=== PATIENT | female | born 1945 | race Caucasian/White ===

== ENCOUNTER 2023-04-09 11:05 | Inpatient (IN) | payer MEDICARE, OTHER ==
--- NOTE | 2023-04-09 12:17 | ED ---
General Adult HPI - General Chief complaint: Neuro Symptoms/Deficit Stated complaint: swelling in the face/Recheck Time Seen by Provider: 04/09/23 11:32 Source: patient Mode of arrival: ambulatory Limitations: altered mental status - History of Present Illness Initial comments: Dictation was produced using [employer] dictation software. please excuse any grammatical, word or spelling errors. Chief Complaint: 77-year-old female presents to the emergency family with altered mental status History of Present Illness: 77-year-old female. History of present illness obtained from brother at the bedside and EMS. Patient is a resident at [facility] she was found to be altered and had a bout of diarrhea. According to brother who is not the most familiar with patient states that she was last at baseline a year ago. General facial droop and watery eyes. The ROS documented in this emergency department record has been reviewed and confirmed by me. Those systems with pertinent positive or negative responses have been documented in the HPI. All other systems are other negative and/or noncontributory. - Related Data Allergies Allergy/AdvReac Type Severity Reaction Status Date / Time clindamycin Allergy Unknown Verified 04/09/23 11:30 fluticasone Allergy Unknown Verified 04/09/23 11:30 [From Advair Diskus] pregabalin [From Lyrica] Allergy Unknown Verified 04/09/23 11:30 salmeterol Allergy Unknown Verified 04/09/23 11:30 [From Advair Diskus] Review of Systems ROS Statement: Those systems with pertinent positive or pertinent negative responses have been documented in the HPI. ROS Other: All systems not noted in ROS Statement are negative. Past Medical History Past Medical History: Hypertension Additional Past Medical History / Comment(s): Myasthenia gravis, myasthenia,alzheimer's, dementia History of Any Multi-Drug Resistant Organisms: None Reported Past Surgical History: Orthopedic Surgery Past Psychological History: Depression Smoking Status: Never smoker Past Alcohol Use History: None Reported Past Drug Use History: None Reported General Exam - General Exam Comments Initial Comments: PHYSICAL EXAM: General Impression: Alert and oriented x1/4, not in acute distress HEENT: Normocephalic atraumatic, extra-ocular movements intact, pupils equal and reactive to light bilaterally, mucous membranes moist. Cardiovascular: Heart regular rate and rhythm Chest: Able to complete full sentences, no retractions, no tachypnea Abdomen: abdomen soft, non-tender, non-distended, no organomegaly Musculoskeletal: Pulses present and equal in all extremities, no peripheral tarun ma Motor: no focal deficits noted Neurological: CN II-XII grossly intact, no focal motor or sensory deficits noted Skin: Intact with no visualized rashes Psych: Normal affect and mood Limitations: altered mental status Course Vital Signs 04/09/23 11:23 Temperature 98.2 F Pulse Rate 77 Respiratory 20 Rate Blood Pressure 128/62 O2 Sat by Pulse 96 Oximetry Medical Decision Making - Medical Decision Making Was pt. sent in by a medical professional or institution (, PA, HOSE TURNER, urgent care, hospital, or longterm...) When possible be specific @ -No Did you speak to anyone other than the patient for history (EMS, parent, family, police, friend...)? What history was obtained from this source @ -Some history obtained from brother who is the power of attorney at law states that patient has been having chronic insidious mental debility that's been worsening Did you review nursing and triage notes (agree or disagree)? Why? @ -I reviewed and agree with nursing and triage notes Were old charts reviewed (outside hosp., previous admission, EMS record, old EKG, old radiological studies, urgent care reports/EKG's, longterm records)? Report findings @ -No old charts were reviewed Differential Diagnosis (chest pain, altered mental status, abdominal pain women, abdominal pain men, vaginal bleeding, musculoskeletal, weakness, fever, dyspnea, syncope, headache, dizziness, GI bleed, back pain, seizure, CVA, palpatations, mental health)? @ -Differential Altered Mental Status: Hypoglycemia, DKA, hypercapnia, ETOH, overdose, CO poisoning, trauma, myxedema coma, HTN encephalopathy, infection, encephalitis, psychosis, intercranial hemorrhage, hepatic encephalopathy, meningitis, CVA, this is not meant to be an all-inclusive list EKG interpreted by me (3pts min.). @ -My EKG interpretation: Ventricular rate 62, sinus rhythm,. 129, QRS 108, QTC 422. No [place] prolongation, no QTC prolongation, no ST or T-wave changes noted. Overall, this EKG is unremarkable X-rays interpreted by me (1pt min.). @ -None done CT interpreted by me (1pt min.). @ -CT Scan of the brain is unremarkable for acute processes. U/S interpreted by me (1pt. min.). @ -None done What testing was considered but not performed or refused? (CT, X-rays, U/S, labs)? Why? @ -None What meds were considered but not given or refused? Why? @ -None Did you discuss the management of the patient with other professionals (professionals i.e. , PA, HOSE TURNER, lab, RT, psych nurse, social service assistant, infantry unit leader, teacher, foreign service officer, continuous pillowcase cutter)? Give summary @ -Labs imaging and clinical presentation discussed with Dr. [facility] for admission Was smoking cessation discussed for >3mins.? @ -No Was critical care preformed (if so, how long)? @ -No Were there social determinants of health that impacted care today? How? (Ho melessness, low income, unemployed, alcoholism, drug addiction, transportation, low edu. Level, literacy, decrease access to med. care, halfway, rehab)? @ -Dementia and agreeable disability Was there de-escalation of care discussed even if they declined (Discuss DNR or withdrawal of care, Hospice)? DNR status @ -No What co-morbidities impacted this encounter? (DM, HTN, Smoking, COPD, CAD, Cancer, CVA, ARF, Chemo, Hep., AIDS, mental health diagnosis, sleep apnea, morbid obesity)? @ -None Was patient admitted / discharged? Hospital course, mention meds given and route, prescriptions, significant lab abnormalities, going to OR and other pertinent info. @ -77-year-old female presents to the emergency department for worsening mentation. Brother reports that patient's mentation has been slowly declining over the last several months. She lives at [facility] and their memory care unit. He reports that patient is beyond her capabilities of care. Patient will likely require escalation of long-term care. Labs and imaging unremarkable for acute processes. Patient will be admitted with consultation to continuous pillowcase cutter. Undiagnosed new problem with uncertain prognosis? @ -No Drug Therapy requiring intensive monitoring for toxicity (Heparin, Nitro, Insulin, Cardizem)? @ -No Were any procedures done? @ -No Diagnosis/symptom? Acute, or Chronic, or Acute on Chronic? Uncomplicated (without systemic symptoms) or Complicated (systemic symptoms)? @ -. Gravely disabled Side effects of treatment? @ -No Exacerbation, Progression, or Severe Exacerbation? @ -No Poses a threat to life or bodily function? How? (Chest pain, [place], [place], pneumonia, PE, COPD, DKA, ARF, appy, cholecystitis, CVA, Diverticulitis, Homicidal, Suicidal, threat to staff... and all critical care pts) @ -yes - Lab Data Result diagrams: 04/09/23 11:49 04/09/23 11:49 Lab Results 04/09/23 04/09/23 04/09/23 Range/Units 11:49 11:49 11:49 WBC 10.7 H (3.8-10.6) k/uL RBC 4.14 (3.80-5.40) m/uL Hgb 13.6 (11.4-16.0) gm/dL Hct 41.3 (34.0-46.0) % MCV 99.7 (80.0-100.0) fL MCH 32.9 (25.0-35.0) pg MCHC 33.0 (31.0-37.0) g/dL RDW 13.4 (11.5-15.5) % Plt Count 171 (150-450) k/uL MPV 7.0 Neutrophils % 89 % Lymphocytes % 5 % Monocytes % 4 % Eosinophils % 1 % Basophils % 0 % Neutrophils # 9.5 H (1.3-7.7) k/uL Lymphocytes # 0.6 L (1.0-4.8) k/uL Monocytes # 0.4 (0-1.0) k/uL Eosinophils # 0.1 (0-0.7) k/uL Basophils # 0.0 (0-0.2) k/uL PT 10.1 (9.0-12.0) sec INR 0.9 (<1.2) APTT 21.1 L (22.0-30.0) sec Sodium 137 (137-145) mmol/L Potassium 3.9 (3.5-5.1) mmol/L Chloride 105 (98-107) mmol/L Carbon Dioxide 25 (22-30) mmol/L Anion Gap 7 mmol/L BUN 19 H (7-17) mg/dL Creatinine 0.96 (0.52-1.04) mg/dL Est GFR (CKD-EPI)AfAm 67 (>60 ml/min/1.73 sqM) Est GFR (CKD-EPI)NonAf 58 (>60 ml/min/1.73 sqM) Glucose 93 (74-99) mg/dL Calcium 8.7 (8.4-10.2) mg/dL Magnesium 2.1 (1.6-2.3) mg/dL Troponin I (0.000-0.034) ng/mL Urine Color Urine Appearance (Clear) Urine pH (5.0-8.0) Ur Specific [place] (1.001-1.035) Urine Protein (Negative) Urine Glucose (UA) (Negative) Urine Ketones (Negative) Urine Blood (Negative) Urine Nitrite (Negative) Urine Bilirubin (Negative) Urine Urobilinogen (<2.0) mg/dL Ur Leukocyte Esterase (Negative) Urine RBC (0-5) /hpf Urine WBC (0-5) /hpf Urine Mucus (None) /hpf 04/09/23 04/09/23 Range/Units 11:49 12:30 WBC (3.8-10.6) k/uL RBC (3.80-5.40) m/uL Hgb (11.4-16.0) gm/dL Hct (34.0-46.0) % MCV (80.0-100.0) fL MCH (25.0-35.0) pg MCHC (31.0-37.0) g/dL RDW (11.5-15.5) % Plt Count (150-450) k/uL MPV Neutrophils % % Lymphocytes % % Monocytes % % Eosinophils % % Basophils % % Neutrophils # (1.3-7.7) k/uL Lymphocytes # (1.0-4.8) k/uL Monocytes # (0-1.0) k/uL Eosinophils # (0-0.7) k/uL Basophils # (0-0.2) k/uL PT (9.0-12.0) sec INR (<1.2) APTT (22.0-30.0) sec Sodium (137-145) mmol/L Potassium (3.5-5.1) mmol/L Chloride (98-107) mmol/L Carbon Dioxide (22-30) mmol/L Anion Gap mmol/L BUN (7-17) mg/dL Creatinine (0.52-1.04) mg/dL Est GFR (CKD-EPI)AfAm (>60 ml/min/1.73 sqM) Est GFR (CKD-EPI)NonAf (>60 ml/min/1.73 sqM) Glucose (74-99) mg/dL Calcium (8.4-10.2) mg/dL Magnesium (1.6-2.3) mg/dL Troponin I <0.012 (0.000-0.034) ng/mL Urine Color Yellow Urine Appearance Clear (Clear) Urine pH 5.5 (5.0-8.0) Ur Specific [place] 1.023 (1.001-1.035) Urine Protein Trace H (Negative) Urine Glucose (UA) Negative (Negative) Urine Ketones Negative (Negative) Urine Blood Trace H (Negative) Urine Nitrite Negative (Negative) Urine Bilirubin Negative (Negative) Urine Urobilinogen <2.0 (<2.0) mg/dL Ur Leukocyte Esterase Negative (Negative) Urine RBC 6 H (0-5) /hpf Urine WBC 3 (0-5) /hpf Urine Mucus Occasional H (None) /hpf Disposition Clinical Impression: Gravely disabled Disposition: ADMITTED IP TO THIS [facility] Condition: Fair Referrals: None,Stated [REFERRING] - 1-2 days Decision Time: 13:45
--- NOTE | 2023-04-09 12:30 | CT ---
EXAMINATION TYPE: CT brain wo con DATE OF EXAM: 04/09/2023 HISTORY: AMS, facial swelling CT DLP: 1125.6 mGycm. Automated Exposure Control for Dose Reduction was Utilized. TECHNIQUE: CT scan of the head is performed without contrast. COMPARISON: None. FINDINGS: There is no acute intracranial hemorrhage or midline shift identified. There is mild to m oderate diffuse ventricular and sulcal prominence consistent with splinter to a prominent slightly ou t of proportion to degree of sulcal effacement. There is mild low-attenuation in the periventricular white matter. The globes are intact and the visualized sinuses are clear. IMPRESSION: No acute intracranial hemorrhage or midline shift. There is mild to moderate diffuse ce rebral atrophy and mild chronic small vessel ischemic change noted. An underlying mild normal pressu re hydrocephalus is not excluded. Correlation with old outside CT or MRI be beneficial.
[2023-04-09 12:38] LABS: Basophils % (A) 0 %; Eosinophils # (A) 0.1 k/uL (0-0.7); Eosinophils % (A) 1 %; HCT 41.3 % (34.0-46.0); HGB 13.6 gm/dL (11.4-16.0); Lymphocytes # (A) 0.6 k/uL (1.0-4.8); Lymphocytes % (A) 5 %; MCH 32.9 pg (25.0-35.0); MCV 99.7 fL (80.0-100.0); Monocytes # (A) 0.4 k/uL (0-1.0); Monocytes % (A) 4 %; Neutrophils # (A) 9.5 k/uL (1.3-7.7); Neutrophils % (A) 89 %; Platelet Count 171 k/uL (150-450); RBC 4.14 m/uL (3.80-5.40); RDW 13.4 % (11.5-15.5); WBC 10.7 k/uL (3.8-10.6)
[2023-04-09 12:47] LABS: Appearance,Urine Clear (Clear); Bilirubin,Urine Negative (Negative); Blood,Urine Trace (Negative); Color,Urine Yellow; Glucose,Urine (UA) Negative (Negative); Ketones,Urine Negative (Negative); Leukocyte Esterase,Urine Negative (Negative); Mucus,Urine Occasional /hpf; Nitrite,Urine Negative (Negative); PH, Urine 5.5 (5.0-8.0); Protein,Urine Trace (Negative); RBC,Urine 6 /hpf (0-5); Specific Gravity,Urine 1.023 (1.001-1.035); Urobilinogen,Urine <2.0 mg/dL (<2.0); WBC,Urine 3 /hpf (0-5)
[2023-04-09 12:54] LABS: Calcium 8.7 mg/dL (8.4-10.2); INR 0.9 (<1.2); Magnesium 2.1 mg/dL (1.6-2.3); Potassium 3.9 mmol/L (3.5-5.1); Prothrombin Time 10.1 sec (9.0-12.0)
[2023-04-09 13:27] LABS: Partial Thromboplastin Time 21.1 sec (22.0-30.0)
[2023-04-09] MEDS ORDERED: NALOXONE 0.4 MG/ML 1 ML VIAL IV PRN (14:01)
[2023-04-09] MEDS ORDERED: ACETAMINOPHEN TAB 325 MG TAB PO PRN (16:47)
--- NOTE | 2023-04-09 16:53 | P.HPIM ---
History of Present Illness H&P Date: 04/09/23 Patient is a 77-year-old female with PMH of advanced Alzheimer's dementia, myasthenia gravis, hypertension, dyslipidemia presents the ED from [facility] dementia unit for worsening altered mentation. Her brother has secondary POA is at bedside and providing majority of the history. Her brother visits the patient 2-3 times a week. He is noted progressive deterioration in her mentation over the past month. He reports bladder and bowel incontinence. Today, she had 2 episodes of loose stool. She was subsequently sent to the ED for further evaluation. Patient herself currently has no complaints. In the ED, her vital signs are stable. CBC showed leukocytosis of 10.7. Coagulation panel showed APTT 21.1. BMP showed BUN of 19. UA was negative for LE or nitrite. EKG showed sinus rhythm with no ST or T-wave changes. Brain CT showed mild to moderate diffuse cerebral atrophy, mild NPH not excluded. Patient is admitted for further management and evaluation. Pertinent positives and negatives as discussed in HPI, a complete review of systems was performed and all other systems are negative. General: non toxic, no distress, appears at stated age Derm: warm, dry Head: atraumatic, normocephalic, symmetric Eyes: EOMI, no lid lag, anicteric sclera Mouth: no lip lesion, mucus membranes moist Cardiovascular: S1S2 reg, no murmur Lungs: CTA bilateral, no rhonchi, no rales , no accessory muscle use Abdominal: soft, nontender to palpation, no guarding, no appreciable organomegaly Ext: no gross muscle atrophy, no edema, no contractures Neuro: no focal neuro deficits Psych: Alert and oriented x 1, appropriate affect Acute metabolic encephalopathy likely related to advanced Alzheimer's dementia Bladder and bowel incontinence likely sequelae of advanced Alzheimer's dementia Leukocytosis Elevated BUN Chronic conditions: Myasthenia gravis, hypertension, dyslipidemia Based on my assessment of this patient, this patient meets a moderate complexity level of care. Patient has a history of advanced Alzheimer's dementia with severe exacerbation or progression of disease which poses a threat to life or bodily function. Brother has concerns of bladder and bowel incontinence. B12, Folate and TSH will be ordered. Patient will be placed on fall precautions. PT OT and ST will be co nsulted. Restart Aricept 10 mg PO QD. Avoid sedative medications. Frequent redirection. FULL CODE. Her son is the decision maker and primary POA. Lovenox SQ for DVT prophylaxis. I have reviewed the results of the following tests: CBC showed leukocytosis of 10.7. Coagulation panel showed APTT 21.1. BMP showed BUN of 19. UA was negative for LE or nitrite. Brain CT showed mild to moderate diffuse cerebral atrophy, mild NPH not excluded. I have ordered the following tests: B12, Folate, TSH. I have independently interpreted the following test below: EKG showed sinus rhythm with no ST or T-wave changes. Past Medical History Past Medical History: Hypertension Additional Past Medical History / Comment(s): Myasthenia gravis, my asthenia,alzheimer's, dementia History of Any Multi-Drug Resistant Organisms: None Reported Past Surgical History: Orthopedic Surgery Past Psychological History: Depression Smoking Status: Never smoker Past Alcohol Use History: None Reported Past Drug Use History: None Reported Medications and Allergies Allergies Allergy/AdvReac Type Severity Reaction Status Date / Time clindamycin Allergy Unknown Verified 04/09/23 11:30 fluticasone Allergy Unknown Verified 04/09/23 11:30 [From Advair Diskus] pregabalin [From Lyrica] Allergy Unknown Verified 04/09/23 11:30 salmeterol Allergy Unknown Verified 04/09/23 11:30 [From Advair Diskus] Physical Exam Vitals: Vital Signs Temp Pulse Pulse Resp BP BP Pulse Ox 04/09/23 16:00 98.5 F 57 L 18 125/76 95 04/09/23 14:13 99.5 F 81 18 154/71 98 04/09/23 11:23 98.2 F 77 20 128/62 96 Intake and Output 04/09/23 04/09/23 04/09/23 06:59 14:59 22:59 Other: Weight 58.967 kg Results CBC & Chem 7: 04/09/23 11:49 04/09/23 11:49 Labs: Abnormal Lab Results - Last 24 Hours (Table) 04/09/23 04/09/23 04/09/23 Range/Units 11:49 11:49 11:49 WBC 10.7 H (3.8-10.6) k/uL Neutrophils # 9.5 H (1.3-7.7) k/uL Lymphocytes # 0.6 L (1.0-4.8) k/uL APTT 21.1 L (22.0-30.0) sec BUN 19 H (7-17) mg/dL Urine Protein (Negative) Urine Blood (Negative) Urine RBC (0-5) /hpf Urine Mucus (None) /hpf 04/09/23 Range/Units 12:30 WBC (3.8-10.6) k/uL Neutrophils # (1.3-7.7) k/uL Lymphocytes # (1.0-4.8) k/uL APTT (22.0-30.0) sec BUN (7-17) mg/dL Urine Protein Trace H (Negative) Urine Blood Trace H (Negative) Urine RBC 6 H (0-5) /hpf Urine Mucus Occasional H (None) /hpf Thrombosis Risk Factor Assmnt - Choose All That Apply Any of the Below Risk Factors Present?: Yes Other Risk Factors: Yes Each Risk Factor Represents 3 Points: Age 75 years or older Thrombosis Risk Factor Assessment Total Risk Factor Score: 3 Thrombosis Risk Factor Assessment Level: Moderate Risk
[2023-04-09] MEDS: ATORVASTATIN 20 MG TAB PO SCH (21:48)
[2023-04-09] MEDS: DONEPEZIL 10 MG TAB PO SCH (21:48)
[2023-04-09] MEDS: MONTELUKAST 10 MG TAB PO SCH (21:48)
[2023-04-09] MEDS: cycloSPORINE 0.05% OPHTH 0.4 ML DROPERETTE BOTH EYES SCH (22:45)
[2023-04-09] MEDS: SODIUM CHLORIDE 0.9% 1,000 ML IV SCH (22:46)
[2023-04-10] MEDS: METOPROLOL SUCCINATE (ER) 50 MG TAB.ER.24H PO SCH (04:50)
[2023-04-10] MEDS: ENOXAPARIN 40 MG/0.4 ML SYRINGE SQ SCH (09:08)
[2023-04-10] MEDS: LORATADINE 10 MG TAB PO SCH (09:09)
[2023-04-10] MEDS: ASPIRIN 81 MG PO SCH (09:09)
[2023-04-10] MEDS: ARIPiprazole 2 MG TAB PO SCH (09:09)
[2023-04-10] MEDS: predniSONE 20 MG TAB PO SCH (09:10)
[2023-04-10] MEDS: cycloSPORINE 0.05% OPHTH 0.4 ML DROPERETTE BOTH EYES SCH ×2 (09:10→21:56)
--- NOTE | 2023-04-10 15:51 | P.PN ---
Subjective Progress Note Date: 04/10/23 (delayed charting seen at 1145) Patient is a 77-year-old female with advanced Alzheimer's dementia, myasthenia gravis, hypertension, dyslipidemia presents to the ED from [facility] for worsening altered mentation. In the ED the patient underwent an extensive evaluation, her vital signs were within normal limits. Laboratory analysis was remarkable for leukocytosis of 10.7 and BUN of 19. Brain CT showed mild to moderate diffuse cerebral atrophy, mild NPH not excluded. Patient was admitted for further management and evaluation. Patient seen and examined at bedside. She is pleasantly confused.She denies any chest pain, SOB, nuasea. Per nursing no acute concerns. Vital signs reviewed General: nontoxic, no distress, appears at stated age Cardiovascular: S1S2 reg, no murmur, positive posterior tibial pulse bilateral, Lungs: CTA bilateral, no rhonchi, no rales , no accessory muscle use Abdominal: soft, nontender to palpation, no guarding, no appreciable organomegaly Ext: no gross muscle atrophy, no edema, no contractures Neuro: CN II-XI grossly intact, no focal neuro deficits Psych: Alert, oriented to self , appropriate affect Assessment: Acue delerium on advanced dementia Dehydration Leukocytosis Chronic conditions: Myasthenia gravis, hypertension, dyslipidemia Imaging: No new Data Review: TMax in 24 hours 99.5 B12 290, folate 16.1, TSH 1.55 Plan: -PT/OT evaluation -Continue monitor for signs of diarrhea -Repeat CBC and basic metabolic profile in a.m. for dehydration and to ensure improvement in white blood cell count -It appears from prior notes that patient is unable to return to [facility] as she is needing more care than they are able to give DVT prophylaxis: Lovenox Discussed with: Nursing Anticipated discharge date and place: Pending clinical course This dictation was prepared using [employer] voice recognition software. Though every attempt is made to correct errors during during dictation some may still exist. Objective - Vital Signs Vital signs: Vital Signs Temp 98.3 F 04/10/23 07:46 Pulse 53 L 04/10/23 07:46 Resp 17 04/10/23 07:46 BP 133/72 04/10/23 07:46 Pulse Ox 96 04/10/23 07:46 FiO2 Intake & Output 04/09/23 04/10/23 04/10/23 18:59 06:59 18:59 Intake Total 250 Balance 250 Weight 58.967 kg Intake: Oral 250 Other: Voiding Method Diaper Incontinent # Voids 2 1 # Bowel Movements 1 - Labs CBC & Chem 7: 04/09/23 11:49 04/09/23 11:49
[2023-04-10] MEDS: MONTELUKAST 10 MG TAB PO SCH (21:56)
[2023-04-10] MEDS: ATORVASTATIN 20 MG TAB PO SCH (21:56)
[2023-04-10] MEDS: DONEPEZIL 10 MG TAB PO SCH (21:56)
[2023-04-10] MEDS: SODIUM CHLORIDE 0.9% 1,000 ML IV SCH (21:57)
[2023-04-11] MEDS: METOPROLOL SUCCINATE (ER) 50 MG TAB.ER.24H PO SCH (07:56)
[2023-04-11] MEDS: LORATADINE 10 MG TAB PO SCH (07:56)
[2023-04-11] MEDS: ASPIRIN 81 MG PO SCH (07:56)
[2023-04-11] MEDS: ENOXAPARIN 40 MG/0.4 ML SYRINGE SQ SCH (07:57)
[2023-04-11] MEDS: predniSONE 20 MG TAB PO SCH (07:57)
[2023-04-11] MEDS: ARIPiprazole 2 MG TAB PO SCH (07:57)
[2023-04-11] MEDS: cycloSPORINE 0.05% OPHTH 0.4 ML DROPERETTE BOTH EYES SCH ×2 (07:57→21:33)
[2023-04-11 09:28] LABS: HCT 47.7 % (34.0-46.0); HGB 15.3 gm/dL (11.4-16.0); MCHC 32.1 g/dL (31.0-37.0); MCV 102.8 fL (80.0-100.0); Macrocytosis Slight; Platelet Count 186 k/uL (150-450); RBC 4.63 m/uL (3.80-5.40); RDW 13.1 % (11.5-15.5)
[2023-04-11 09:45] LABS: African American GFR (CKD) 77 (>60 ml/min/1.73 sqM); Anion Gap 12 mmol/L; Blood Urea Nitrogen 17 mg/dL (7-17); Calcium 9.3 mg/dL (8.4-10.2); Carbon Dioxide 20 mmol/L (22-30); Chloride 106 mmol/L (98-107); Glucose 145 mg/dL (74-99); Non-African American GFR(CKD) 67 (>60 ml/min/1.73 sqM); Potassium 3.7 mmol/L (3.5-5.1); Sodium 138 mmol/L (137-145)
--- NOTE | 2023-04-11 12:06 | XR ---
EXAMINATION TYPE: XR chest 1V portable DATE OF EXAM: 04/11/2023 CLINICAL HISTORY: Leukocytosis. TECHNIQUE: Single AP portable upright view of the chest is obtained. COMPARISON: None. FINDINGS: There is no suspicious focal airspace opacity, pleural effusion, or pneumothorax seen bila terally. Cardiac silhouette size is upper limits of normal. Degenerative change left glenohumeral levon nt is seen. IMPRESSION: No acute pulmonary infiltrate.
[2023-04-11] MEDS: SODIUM CHLORIDE 0.9% 1,000 ML IV SCH (15:33)
--- NOTE | 2023-04-11 15:55 | P.PN ---
Subjective Progress Note Date: 04/11/23 (Delayed charting seen at approximately 1120) Patient is a 77-year-old female with advanced Alzheimer's dementia, myasthenia gravis, hypertension, dyslipidemia presents to the ED from [facility] dementia unit for worsening altered mentation. In the ED the patient underwent an extensive evaluation, her vital signs were within normal limits. Laboratory analysis was remarkable for leukocytosis of 10.7 and BUN of 19. Brain CT showed mild to moderate diffuse cerebral atrophy, mild NPH not excluded. Patient was admitted for further management and evaluation. Patient seen and examined at bedside. She is alert to self only. She denies any complaints. Per nursing no acute events overnight. No diarrhea noted. Son presented to the room later in the afternoon. He is concerned that [facility] is no longer able to care for her. We discussed that she is elevated white blood cell count or urinalysis and chest x-ray are negative. We discussed that we'll have to figure out an appropriate discharge plan for her and he has anxiously waiting to talk to cyanide case hardener tomorrow and states he likely will be pursuing [facility] placement on discharge. We did discuss that the CT of the head was consistent with dementia but did not show any prior stroke and worsening of likely secondary to progression of dementia. Vital signs reviewed General: nontoxic, no distress, appears at stated age Cardiovascular: S1S2 reg, no murmur, positive posterior tibial pulse bilateral, Lungs: CTA bilateral, no rhonchi, no rales , no accessory muscle use Abdominal: soft, nontender to palpation, no guarding, no appreciable organomegaly Ext: no gross muscle atrophy, no edema, no contractures Neuro: CN II-XI grossly intact, no focal neuro deficits Psych: Alert, oriented to self , appropriate affect Assessment: Acute delirium on advanced dementia Dehydration, resolved Leukocytosis, increasing Chronic conditions: Myasthenia gravis, hypertension, dyslipidemia Imaging: No new Data Review: Vitals reviewed in T-max last 24 hours is 99.2. I have reviewed and remarkable for white blood cell count 13 (up from 10.7, carbon dioxide 20, glucose 145 Plan: -Elevated white blood cell count was noted and chest x-ray was ordered and reviewed by myself which shows no acute process. Will repeat CBC in AM -PT/OT evaluation -It appears from prior notes that patient is unable to return to [facility] as she is needing more care than they are able to give DVT prophylaxis: Lovenox Discussed with: Nursing Anticipated discharge date and place: Pending clinical course This dictation was prepared using [employer] voice recognition software. Though every attempt is made to correct errors during during dictation some may still exist. Objective - Vital Signs Vital signs: Vital Signs Temp 99.2 F 04/11/23 14:00 Pulse 90 04/11/23 14:00 Resp 16 04/11/23 14:00 BP 109/72 04/11/23 14:00 Pulse Ox 94 L 04/11/23 14:00 FiO2 Intake & Output 04/10/23 04/11/23 04/11/23 18:59 06:59 18:59 Intake Total 240 120 Balance 240 120 Intake: Oral 240 120 Other: Voiding Method Diaper Toilet Toilet Incontinent Diaper Diaper Incontinent Incontinent # Voids 2 - Labs CBC & Chem 7: 04/11/23 08:48 04/11/23 08:48 Labs: Abnormal Lab Results - Last 24 Hours (Table) 04/11/23 04/11/23 Range/Units 08:48 08:48 WBC 13.0 H (3.8-10.6) k/uL Hct 47.7 H (34.0-46.0) % MCV 102.8 H (80.0-100.0) fL Carbon Dioxide 20 L (22-30) mmol/L Glucose 145 H (74-99) mg/dL
[2023-04-11] MEDS: ATORVASTATIN 20 MG TAB PO SCH (21:02)
[2023-04-11] MEDS: MONTELUKAST 10 MG TAB PO SCH (21:02)
[2023-04-11] MEDS: DONEPEZIL 10 MG TAB PO SCH (21:02)
[2023-04-12] MEDS: ASPIRIN 81 MG PO SCH (07:50)
[2023-04-12] MEDS: predniSONE 20 MG TAB PO SCH (07:50)
[2023-04-12] MEDS: LORATADINE 10 MG TAB PO SCH (07:50)
[2023-04-12] MEDS: METOPROLOL SUCCINATE (ER) 50 MG TAB.ER.24H PO SCH (07:50)
[2023-04-12] MEDS: ARIPiprazole 2 MG TAB PO SCH (07:52)
[2023-04-12] MEDS: cycloSPORINE 0.05% OPHTH 0.4 ML DROPERETTE BOTH EYES SCH ×2 (07:53→22:34)
[2023-04-12] MEDS: ENOXAPARIN 40 MG/0.4 ML SYRINGE SQ SCH (07:53)
[2023-04-12 08:25] LABS: HCT 44.1 % (34.0-46.0); HGB 14.5 gm/dL (11.4-16.0); MCH 33.4 pg (25.0-35.0); MCHC 32.7 g/dL (31.0-37.0); Macrocytosis Slight; Mean Platelet Volume 7.1; Platelet Count 186 k/uL (150-450); RBC 4.33 m/uL (3.80-5.40); RDW 13.3 % (11.5-15.5)
[2023-04-12] MEDS: SODIUM CHLORIDE 0.9% 1,000 ML IV SCH (15:19)
--- NOTE | 2023-04-12 19:02 | P.PN ---
Subjective Progress Note Date: 04/12/23 (Delayed charting seen at 1045) Patient is a 77-year-old female with advanced Alzheimer's dementia, myasthenia gravis, hypertension, dyslipidemia presents to the ED from [facility] for worsening altered mentation. In the ED the patient underwent an extensive evaluation, her vital signs were within normal limits. Laboratory analysis was remarkable for leukocytosis of 10.7 and BUN of 19. Brain CT showed mild to moderate diffuse cerebral atrophy, mild NPH not excluded. Patient was admitted for further management and evaluation. Patient seen and examined at bedside. She is alert and oriented to self. She denies any pain or shortness of breath. Vital signs reviewed General: nontoxic, no distress, appears at stated age Cardiovascular: S1S2 reg, no murmur, positive posterior tibial pulse bilateral, Lungs: CTA bilateral, no rhonchi, no rales , no accessory muscle use Abdominal: soft, nontender to palpation, no guarding, no appreciable organomegaly Ext: no gross muscle atrophy, no edema, no contractures Neuro: CN II-XI grossly intact, no focal neuro deficits Psych: Alert, oriented to self , appropriate affect Assessment: Acute delirium on advanced dementia Dehydration, resolved Leukocytosis, resolved Chronic conditions: Myasthenia gravis, hypertension, dyslipidemia Imaging: No new Data Review: Vital signs reviewed temperature 98.8, pulse 81, respirations 16, blood pressure 122/77, O2 sat 95% on room air Plan: -Elevated white blood cell count was noted and chest x-ray was ordered and reviewed by myself which shows no acute process. Will repeat CBC in AM -PT/OT evaluation -Case discussed with foster care social worker. Awaiting PT/OT evaluation of patient is able to ambulate on her own can return to [facility] if not we'll need fci versus subacute rehab placement. DVT prophylaxis: Lovenox Discussed with: Nursing Anticipated discharge date and place: Once D/C plan in placed This dictation was prepared using [employer] voice recognition software. Though every attempt is made to correct errors during during dictation some may still exist. Objective - Vital Signs Vital signs: Vital Signs Temp 98.4 F 04/12/23 14:00 Pulse 95 04/12/23 14:00 Resp 15 04/12/23 14:00 BP 117/73 04/12/23 14:00 Pulse Ox 95 04/12/23 14:00 FiO2 Intake & Output 04/12/23 04/12/23 04/13/23 06:59 18:59 06:59 Intake Total 960 240 Balance 960 240 Intake: Oral 960 240 Other: Voiding Method Toilet Toilet Diaper Diaper Incontinent Incontinent # Voids 2 1 - Labs CBC & Chem 7: 04/12/23 07:19 04/11/23 08:48 Labs: Abnormal Lab Results - Last 24 Hours (Table) 04/12/23 Range/Units 07:19 MCV 102.0 H (80.0-100.0) fL
[2023-04-12] MEDS: ATORVASTATIN 20 MG TAB PO SCH (22:28)
[2023-04-12] MEDS: DONEPEZIL 10 MG TAB PO SCH (22:28)
[2023-04-12] MEDS: MONTELUKAST 10 MG TAB PO SCH (22:28)
[2023-04-13 03:10] VITALS: RESP 18
[2023-04-13] MEDS: ASPIRIN 81 MG PO SCH (10:02)
[2023-04-13] MEDS: ENOXAPARIN 40 MG/0.4 ML SYRINGE SQ SCH (10:02)
[2023-04-13] MEDS: LORATADINE 10 MG TAB PO SCH (10:02)
[2023-04-13] MEDS: predniSONE 20 MG TAB PO SCH (10:03)
[2023-04-13] MEDS: ARIPiprazole 2 MG TAB PO SCH (10:03)
--- NOTE | 2023-04-13 10:03 | P.DS ---
Providers Date of admission: 04/09/23 14:01 Expected date of discharge: 04/13/23 Attending physician: Mary Anne Grubbs MD Primary care physician: Zacarias Livingston [facility] Course: Discharge Diagnosis: Acute delirium on advanced dementia Dehydration, resolved Leukocytosis, resolved Chronic conditions: Myasthenia gravis, hypertension, dyslipidemia Hospital Course: Patient is a 77-year-old female with advanced Alzheimer's dementia, myasthenia gravis, hypertension, dyslipidemia presents to the ED from [facility] unit for worsening altered mentation. In the ED the patient underwent an extensive evaluation, her vital signs were within normal limits. Laboratory analysis was remarkable for leukocytosis of 10.7 and BUN of 19. Brain CT showed mild to moderate diffuse cerebral atrophy, mild NPH not excluded. Patient was admitted for further management and evaluation. She was seen by physical therapy and was he was felt she might benefit from rehab. She had no additional diarrhea upon presentation to the hospital. Her dehydration resolved. Urinalysis showed no signs of infection, chest x-ray was negative. She was determined stable for discharge. Follow-up: Primary care provider at [facility]. Patient seen and examined at bedside. Denies any pain. Sitting up in the chair. No complaints. Vital signs reviewed and stable. General: nontoxic, no distress, appears at stated age Cardiovascular: S1S2 reg, no murmur, positive posterior tibial pulse bilateral, Lungs: CTA bilateral, no rhonchi, no rales , no accessory muscle use Abdominal: soft, nontender to palpation, no guarding, no appreciable organomegaly Ext: no gross muscle atrophy, no edema, no contractures Neuro: CN II-XI grossly intact, no focal neuro deficits Psych: Alert, oriented to self, appropriate affect A total of 22 minutes of time were spent preparing this complex discharge summary. Patient was discharged on 04/13/23. This dictation was prepared using [employer] voice recognition software. Though every attempt is made to correct errors during during dictation some may still exist. Patient Condition at Discharge: Fair Plan - Discharge Summary New Discharge Prescriptions: Continue cycloSPORINE 0.05% OPHTH SOLN [Restasis] 1 drop BOTH EYES BID Meloxicam [Mobic] 7.5 mg PO DAILY Donepezil [Aricept] 10 mg PO HS Atorvastatin [Lipitor] 20 mg PO HS Aspirin EC [Ecotrin Low Dose] 81 mg PO DAILY predniSONE [Deltasone] 20 mg PO DAILY Montelukast [Singulair] 10 mg PO HS Metoprolol Succinate (ER) [Toprol XL] 50 mg PO DAILY Levocetirizine Dihydrochloride [Xyzal] 5 mg PO HS ARIPiprazole [Abilify] 1 mg PO DAILY Discontinued traMADol HCL 50 mg PO Q6H PRN PRN Reason: Pain Methenamine Hippurate 1 gm PO BID Discharge Medication List ARIPiprazole [Abilify] 1 mg PO DAILY 04/09/23 [History] Aspirin EC [Ecotrin Low Dose] 81 mg PO DAILY 04/09/23 [History] Atorvastatin [Lipitor] 20 mg PO HS 04/09/23 [History] Donepezil [Aricept] 10 mg PO HS 04/09/23 [History] Levocetirizine Dihydrochloride [Xyzal] 5 mg PO HS 04/09/23 [History] Meloxicam [Mobic] 7.5 mg PO DAILY 04/09/23 [History] Metoprolol Succinate (ER) [Toprol XL] 50 mg PO DAILY 04/09/23 [History] Montelukast [Singulair] 10 mg PO HS 04/09/23 [History] cycloSPORINE 0.05% OPHTH SOLN [Restasis] 1 drop BOTH EYES BID 04/09/23 [History] predniSONE [Deltasone] 20 mg PO DAILY 04/09/23 [History] Follow up Appointment(s)/Referral(s): None,Stated [REFERRING] - 1-2 days Activity/Diet/Wound Care/Special Instructions: Activity: as tolerated Fall Precautions Diet: regular, requires 1:1 feed assist Discharge Disposition: HOME SELF-CARE
[2023-04-13] MEDS: METOPROLOL SUCCINATE (ER) 50 MG TAB.ER.24H PO SCH (10:04)
[2023-04-13] MEDS: cycloSPORINE 0.05% OPHTH 0.4 ML DROPERETTE BOTH EYES SCH (10:04)
--- NOTE | 2023-04-13 12:24 | CT ---
EXAMINATION TYPE: CT brain wo con DATE OF EXAM: 04/13/2023 HISTORY: Fall, hit head CT DLP: 1129.4 mGycm. Automated Exposure Control for Dose Reduction was Utilized. TECHNIQUE: CT scan of the head is performed without contrast. COMPARISON: CT brain 4 days ago. FINDINGS: There is no acute intracranial hemorrhage or midline shift identified. There is mild-to-m oderate diffuse ventricular and sulcal prominence redemonstrated. Asymmetry to the ventricles is rede monstrated. There is mild low-attenuation in the periventricular white matter redemonstrated. The gl obes are intact and the visualized sinuses are clear. IMPRESSION: No acute intracranial hemorrhage or midline shift. There is mild to moderate diffuse ag e-related cerebral atrophy and mild chronic small vessel ischemic change redemonstrated. No signific ant change from most recent prior CT.
[2023-04-13 15:32] VITALS: BP 88/55; PULSE 89; TEMP 99
== END 2023-04-13 16:01 | DRG 57 ==
LOC: EC 11:05 → 4SSUR 14:01
PROVIDERS: ADMIT Family Medicine; ATTEND Family Medicine
DX: G30.9 Alzheimer's disease, unspecified (principal); F05 Delirium due to known physiological condition; R22.0 Localized swelling, mass and lump, head; E78.5 Hyperlipidemia, unspecified; G70.00 Myasthenia gravis without (acute) exacerbation; E86.0 Dehydration; I10 Essential (primary) hypertension; R32 Unspecified urinary incontinence; R15.9 Full incontinence of feces; F02.80 Dementia in other diseases classified elsewhere, unspecified severity, without behavioral disturbance, psychotic disturbance, mood disturbance, and anxiety; Z88.1 Allergy status to other antibiotic agents; Z88.8 Allergy status to other drugs, medicaments and biological substances
CPT/HCPCS: 36415; 70450; 71045; 80048; 81001; 82607; 82746; 83735; 84443; 84484; 85025; 85027; 85610; 85730; 87635; 93005; 99285

== ENCOUNTER 2023-05-06 22:40 | Emergency (ER) | payer MEDICARE ==
--- NOTE | 2023-05-06 22:53 | ED ---
Fall HPI - General Chief Complaint: Fall Stated Complaint: Fall Time Seen by Provider: 05/06/23 22:47 Source: patient Mode of arrival: EMS - History of Present Illness Initial Comments: 77-year-old female with history of dementia presenting from [facility] after a witnessed fall. There was no loss of consciousness. Patient does have some pain to the left cheek and left shoulder. She is pain with range of motion of the shoulder. She is alert and oriented to self which is consistent with her baseline I'm told. No blood thinners. - Related Data Home Medications Medication Instructions Recorded Confirmed ARIPiprazole [Abilify] 1 mg PO DAILY 04/09/23 04/09/23 Aspirin EC [Ecotrin Low Dose] 81 mg PO DAILY 04/09/23 04/09/23 Atorvastatin [Lipitor] 20 mg PO HS 04/09/23 04/09/23 Donepezil [Aricept] 10 mg PO HS 04/09/23 04/09/23 Levocetirizine Dihydrochloride 5 mg PO HS 04/09/23 04/09/23 [Xyzal] Meloxicam [Mobic] 7.5 mg PO DAILY 04/09/23 04/09/23 Metoprolol Succinate (ER) [Toprol 50 mg PO DAILY 04/09/23 04/09/23 XL] Montelukast [Singulair] 10 mg PO HS 04/09/23 04/09/23 cycloSPORINE 0.05% OPHTH SOLN 1 drop BOTH EYES BID 04/09/23 04/09/23 [Restasis] predniSONE [Deltasone] 20 mg PO DAILY 04/09/23 04/09/23 Allergies Allergy/AdvReac Type Severity Reaction Status Date / Time clindamycin Allergy Unknown Verified 04/09/23 16:57 fluticasone Allergy Unknown Verified 04/09/23 16:57 [From Advair Diskus] pregabalin [From Lyrica] Allergy Unknown Verified 04/09/23 16:57 salmeterol Allergy Unknown Verified 04/09/23 16:57 [From Advair Diskus] Review of Systems ROS Statement: Those systems with pertinent positive or pertinent negative responses have been documented in the HPI. ROS Other: All systems not noted in ROS Statement are negative. Past Medical History Past Medical History: Hypertension Additional Past Medical History / Comment(s): Myasthenia gravis, myasthenia,alzheimer's, dementia History of Any Multi-Drug Resistant Organisms: None Reported Past Surgical History: Orthopedic Surgery Past Psychological History: Depression Smoking Status: Never smoker Past Alcohol Use History: None Reported Past Drug Use History: None Reported General Exam Limitations: altered mental status General appearance: alert, in no apparent distress Head exam: Present: atraumatic, normocephalic, normal inspection Eye exam: Present: normal appearance, PERRL, EOMI. Absent: scleral icterus, periorbital swelling Neck exam: Present: normal inspection, full ROM Respiratory exam: Present: normal lung sounds bilaterally. Absent: respiratory distress, wheezes, rales, rhonchi, stridor Cardiovascular Exam: Present: regular rate, normal rhythm, normal heart sounds. Absent: systolic murmur, diastolic murmur, rubs, gallop, clicks Extremities exam: Present: tenderness (L shoulder) Neurological exam: Present: alert, altered Psychiatric exam: Present: normal affect, normal mood Skin exam: Present: warm, dry, intact, normal color. Absent: rash Course Vital Signs 05/06/23 05/06/23 05/07/23 22:42 22:49 00:09 Temperature 97.7 F 97.7 F 97.9 F Pulse Rate 75 75 85 Respiratory 16 16 18 Rate Blood Pressure 164/72 138/90 O2 Sat by Pulse 96 98 99 Oximetry Medical Decision Making - Medical Decision Making Was pt. sent in by a medical professional or institution (SUBHASH Wong, HAND PACKER/PACKAGER, urgent care, hospital, or residential...) When possible be specific @ -jail Did you speak to anyone other than the patient for history (EMS, parent, family, police, friend...)? What history was obtained from this source @ -History obtained from EMS Did you review nursing and triage notes (agree or disagree)? Why? @ -I reviewed and agree with nursing and triage notes Were old charts reviewed (outside hosp., previous admission, EMS record, old EKG, old radiological studies, urgent care reports/EKG's, residential records)? Report findings @ -No old charts were reviewed Differential Diagnosis (chest pain, altered mental status, abdominal pain women, abdominal pain men, vaginal bleeding, weakness, fever, dyspnea, syncope, headache, dizziness, GI bleed, back pain, seizure, CVA, palpatations, mental health, musculoskeletal)? @ -Differential Musculoskeletal Muscular strain, contusion, ligament sprain, fracture, arthritis, septic arthritis, bursitis, cellulitis, muscle spasm, nerve compression, DVT, arterial occlusion, herpes zoster, electrolyte abnormality, tumor.... This is not meant to be in all inclusive list EKG interpreted by me (3pts min.). @ -As above X-rays interpreted by me (1pt min.). @ -X-ray shows distal clavicle fracture, negative hip X-ray CT interpreted by me (1pt min.). @ -Negative CT of the facial bones, brain, and cervical spine U/S interpreted by me (1pt. min.). @ -None done What testing was considered but not performed or refused? (CT, X-rays, U/S, labs)? Why? @ -None What meds were considered but not given or refused? Why? @ -None Did you discuss the management of the patient with other professionals (professionals i.e. , PA, HAND PACKER/PACKAGER, lab, RT, psych nurse, social service assistant, library sales consultant, teacher, credit products officer, housing case manager)? Give summary @ -No Was smoking cessation discussed for >3mins.? @ -No Was critical care preformed (if so, how long)? @ -No Were there social determinants of health that impacted care today? How? (Homelessness, low income, unemployed, alcoholism, drug addiction, transportation, low edu. Level, literacy, decrease access to med. care, group home, rehab)? @ -No Was there de-escalation of care discussed even if they declined (Discuss DNR or withdrawal of care, Hospice)? DNR status @ -No What co-morbidities impacted this encounter? (DM, HTN, Smoking, COPD, CAD, Cancer, CVA, ARF, Chemo, Hep., AIDS, mental health diagnosis, sleep apnea, morbid obesity)? @ -None Was patient admitted / discharged? Hospital course, mention meds given and route, prescriptions, significant lab abnormalities, going to OR and other pertinent info. @ -77-year-old female with history of dementia presenting from residential post fall. She does have tenderness to the left side of her face and left shoulder. X-rays positive for distal end clavicle fracture. Patient is placed in a sling. Negative x-ray of the hip. Negative CT of the brain, cervical spine, and facial bones. Patient should follow-up with orthopedics. Follow-up with PCP. Report back to ER with any new or worsening symptoms. Discussed return parameters and answered all questions. Patient conveyed verbal understanding and agreed to the plan. I discussed this case in detail with my attending Dr. Patton Undiagnosed new problem with uncertain prognosis? @ -No Drug Therapy requiring intensive monitoring for toxicity (Heparin, Nitro, Insulin, Cardizem)? @ -No Were any procedures done? @ -No Diagnosis/symptom? @ -Clavicle fracture Acute, or Chronic, or Acute on Chronic? @ -Acute Uncomplicated (without systemic symptoms) or Complicated (systemic symptoms)? @ -Uncomplicated Side effects of treatment? @ -No Exacerbation, Progression, or Severe Exacerbation? @ -No Poses a threat to life or bodily function? How? (Chest pain, [place], CA, pneumonia, PE, COPD, DKA, ARF, appy, cholecystitis, CVA, Diverticulitis, Homicidal, Suicidal, threat to staff... and all critical care pts) @ -No Disposition Clinical Impression: Clavicle fracture Disposition: HOME SELF-CARE Condition: Fair Instructions (If sedation given, give patient instructions): Clavicle Fracture (ED) Additional Instructions: Follow-up with PCP and orthopedics. Report back to ER with any new or worsening symptoms. Is patient prescribed a controlled substance at d/c from ED?: No Referrals: Zacarias Livingston MD [Primary Care Provider] - 1-2 days Guicho Serrano DO [Doctor of Osteopathic Medicine] - 1-2 days Time of Disposition: 00:01
--- NOTE | 2023-05-06 23:37 | XR ---
EXAM: XR Left Hip With Pelvis When Performed, 2 or 3 Views CLINICAL HISTORY: ITS.REASON XR Reason: fall TECHNIQUE: Two or three views of the left hip with pelvis when performed. COMPARISON: No relevant prior studies available. FINDINGS: Bones/joints: No acute fracture. No dislocation. Soft tissues: Unremarkable. IMPRESSION: No acute osseous findings.
--- NOTE | 2023-05-06 23:38 | XR ---
EXAM: XR Left Shoulder Complete, 2 or More Views CLINICAL HISTORY: ITS.REASON XR Reason: fall TECHNIQUE: Two or more views of the left shoulder. COMPARISON: No relevant prior studies available. FINDINGS: Bones/joints: Osteopenia. Acute mildly displaced fracture through the distal left clavicle. Acromioclavicular joint remains congruent. Moderate osteoarthritis of the acromioclavicular joint. Mild-moderate osteoarthritis of the glenohumeral joint. No glenohumeral joint dislocation. No visible fracture of the humerus or scapula. Soft tissues: Unremarkable. IMPRESSION: Acute mildly displaced fracture through the distal left clavicle.
--- NOTE | 2023-05-06 23:42 | CT ---
EXAM: CT Head Without Intravenous Contrast CLINICAL HISTORY: ITS.REASON CT Reason: fall TECHNIQUE: Axial computed tomography images of the head/brain without intravenous contrast. CTDI is 12.9 mGy and DLP is 399.15 mGy-cm. This CT exam was performed using one or more of the following dose reduction techniques: automated exposure control, adjustment of the mA and/or kV according to patient size, and/or use of iterative reconstruction technique. COMPARISON: 04/13/23 FINDINGS: Brain: Generalized parenchymal volume loss. Mild chronic small vessel ischemic change. Rae-white matter differentiation maintained. No acute intracranial hemorrhage, mass-effect, or edema. Ventricles: No hydrocephalus. Enlarged ventricles due to volume loss. Asymmetry of the lateral ventricles, left larger than right, stable. Bones/joints: Unremarkable. No acute fracture. Soft tissues: Unremarkable. Sinuses: Unremarkable as visualized. No acute sinusitis. Mastoid air cells: Unremarkable as visualized. No mastoid effusion. IMPRESSION: No acute intracranial process. EXAM: CT Cervical Spine Without Intravenous Contrast CLINICAL HISTORY: ITS.REASON CT Reason: fall TECHNIQUE: Axial computed tomography images of the cervical spine without intravenous contrast. CTDI is 9.3 mGy and DLP is 250.6 mGy-cm. This CT exam was performed using one or more of the following dose reduction techniques: automated exposure control, adjustment of the mA and/or kV according to patient size, and/or use of iterative reconstruction technique. COMPARISON: No relevant prior studies available. FINDINGS: Bones are demineralized. Vertebral body height and alignment are maintained. There is no acute fracture or traumatic subluxation. There is mild to moderate multilevel degenerative disc disease. There is mild bilateral facet degeneration. There is multilevel uncovertebral joint degeneration. Posterior disc-osteophyte complexes produce mild multilevel central spinal canal stenosis. There is mild left foraminal narrowing at C3-C4. Foramina appear otherwise adequately patent. There is no prevertebral soft tissue swelling. Lung apices are clear. Grocery Sacker image suggests a fracture through the distal left clavicle. IMPRESSION: 1. No cervical spine fracture. 2. Acute fracture through the distal left clavicle.
--- NOTE | 2023-05-06 23:43 | CT ---
EXAM: CT Maxillofacial Without Intravenous Contrast CLINICAL HISTORY: ITS.REASON CT Reason: fall TECHNIQUE: Axial computed tomography images of the face without intravenous contrast. CTDI is 12.9 mGy and DLP is 399.15 mGy-cm. This CT exam was performed using one or more of the following dose reduction techniques: automated exposure control, adjustment of the mA and/or kV according to patient size, and/or use of iterative reconstruction technique. COMPARISON: No relevant prior studies available. FINDINGS: Bones/joints: No acute fracture. Soft tissues: Unremarkable. Orbits: Unremarkable. Sinuses: Unremarkable. No air-fluid levels. IMPRESSION: No acute osseous findings.
[2023-05-07 00:10] VITALS: BP 138/90; PULSE 85; RESP 18; TEMP 97.9
== END 2023-05-07 00:57 | disposition home or self-care (01) ==
LOC: EC 22:40
DX: S42.032A Displaced fracture of lateral end of left clavicle, initial encounter for closed fracture (principal); I10 Essential (primary) hypertension; F32.A Depression, unspecified; Z79.82 Long term (current) use of aspirin; Z79.899 Other long term (current) drug therapy; Z79.1 Long term (current) use of non-steroidal anti-inflammatories (NSAID); Z79.52 Long term (current) use of systemic steroids; Z88.8 Allergy status to other drugs, medicaments and biological substances; W18.30XA Fall on same level, unspecified, initial encounter
CPT/HCPCS: 70450; 70486; 72125; 73502; 99285

== ENCOUNTER 2024-03-11 18:55 | Emergency (ER) | payer MEDICARE ==
[2024-03-11 19:20] VITALS: RESP 18
--- NOTE | 2024-03-11 19:52 | ED ---
General Adult HPI - General Source: patient, EMS, RN notes reviewed, old records reviewed Mode of arrival: EMS Limitations: altered mental status <Howard Woodson - Last Filed: 03/11/24 20:59> <Sharri Loera - Last Filed: 03/19/24 15:28> - General Chief complaint: Fever Stated complaint: Fever Time Seen by Provider: 03/11/24 19:00 - History of Present Illness Initial comments: Patient is a 78-year-old female who presents to the emergency department for evaluation for fevers at home. Apparently diagnosed with a UTI today. Has received Tylenol. Fevers come back despite receiving Tylenol. Was started on Macrobid and sent here for further evaluation. Has a history of Alzheimer's dementia and at baseline is ANO x 1. Currently at her baseline. Febrile up to 103 per EMS. Patient currently denies any complaints but is a poor historian. Is at her baseline of alert and oriented x 1. Presents for further evaluation at this time. (Howard Woodson) - Related Data Home Medications Medication Instructions Recorded Confirmed ARIPiprazole [Abilify] 1 mg PO DAILY 04/09/23 04/09/23 Aspirin EC [Ecotrin Low Dose] 81 mg PO DAILY 04/09/23 04/09/23 Atorvastatin [Lipitor] 20 mg PO HS 04/09/23 04/09/23 Donepezil [Aricept] 10 mg PO HS 04/09/23 04/09/23 Levocetirizine Dihydrochloride 5 mg PO HS 04/09/23 04/09/23 [Xyzal] Meloxicam [Mobic] 7.5 mg PO DAILY 04/09/23 04/09/23 Metoprolol Succinate (ER) [Toprol 50 mg PO DAILY 04/09/23 04/09/23 XL] Montelukast [Singulair] 10 mg PO HS 04/09/23 04/09/23 cycloSPORINE 0.05% OPHTH SOLN 1 drop BOTH EYES BID 04/09/23 04/09/23 [Restasis] predniSONE [Deltasone] 20 mg PO DAILY 04/09/23 04/09/23 Previous Rx's Medication Instructions Recorded Levofloxacin [Levaquin] 750 mg PO DAILY 1 Days #5 tab 03/11/24 Allergies Allergy/AdvReac Type Severity Reaction Status Date / Time clindamycin Allergy Unknown Verified 04/09/23 16:57 fluticasone Allergy Unknown Verified 04/09/23 16:57 [From Advair Diskus] pregabalin [From Lyrica] Allergy Unknown Verified 04/09/23 16:57 salmeterol Allergy Unknown Verified 04/09/23 16:57 [From Advair Diskus] Review of Systems ROS Other: All systems not noted in ROS Statement are negative. <Howard Woodson - Last Filed: 03/11/24 20:59> ROS Other: All systems not noted in ROS Statement are negative. <Sharri Loera - Last Filed: 03/19/24 15:28> ROS Statement: Those systems with pertinent positive or pertinent negative responses have been documented in the HPI. Past Medical History Past Medical History: Hypertension Additional Past Medical History / Comment(s): Myasthenia gravis, myasthenia,alzheimer's, dementia History of Any Multi-Drug Resistant Organisms: None Reported Past Surgical History: Orthopedic Surgery Past Psychological History: Depression Smoking Status: Never smoker Past Alcohol Use History: None Reported Past Drug Use History: None Reported <Howard Woodson - Last Filed: 03/11/24 20:59> General Exam Limitations: altered mental status <Howard Woodson - Last Filed: 03/11/24 20:59> - General Exam Comments Initial Comments: General: Appears in no acute distress. Febrile. HEAD: Normal with no signs of head trauma. EYES: PERRLA, EOMI, conjunctiva normal, no discharge. ENT: Hearing grossly intact, normal oropharynx. RESPIRATORY: Clear breath sounds bilaterally. No wheezes, rales, or rhonchi. C/V: Regular rate and rhythm. S1 and S2 auscultated, no edema, peripheral pulses 2+ and intact throughout ABD: Abd is soft, nontender, nondistended EXT: Normal range of motion, no obvious deformity SKIN: No rashes or lesions observed on exposed skin. NEURO: Alert and oriented x 1. Moving all 4 extremities. (Howard Woodson) Course Vital Signs 03/11/24 03/11/24 03/11/24 19:03 22:04 22:45 Temperature 101.4 F H 98.1 F Pulse Rate 91 68 Respiratory 18 18 Rate Blood Pressure 136/60 119/59 O2 Sat by Pulse 95 98 Oximetry Medical Decision Making <Howard Woodson - Last Filed: 03/11/24 20:59> - Lab Data Result diagrams: 03/11/24 20:42 03/11/24 20:42 <EvaristoSharri Darwin - Last Filed: 03/19/24 15:28> - Medical Decision Making Was pt. sent in by a medical professional or institution (, PA, RADIOLOGIC TECHNICIAN, urgent care, hospital, or penitentiary...) When possible be specific @ -Sent from penitentiary for fevers and suspected UTI. Did you speak to anyone other than the patient for history (EMS, parent, family, police, friend...)? What history was obtained from this source @ -Spoke with nursing staff spoke with EMS who provided patient's past medical history. Did you review nursing and triage notes (agree or disagree)? Why? @ -I reviewed and agree with nursing and triage notes Were old charts reviewed (outside hosp., previous admission, EMS record, old EKG, old radiological studies, urgent care reports/EKG's, penitentiary records)? Report findings @ -No old charts were reviewed Differential Diagnosis (chest pain, altered mental status, abdominal pain women, abdominal pain men, vaginal bleeding, weakness, fever, dyspnea, syncope, headache, dizziness, GI bleed, back pain, seizure, CVA, palpatations, mental health, musculoskeletal)? @ -Differential Fever: Pneumonia, viral URI, endocarditis, myocarditis, pericarditis, otitis, sinusitis, peritonsillar Abscess, retropharyngeal Abscess, epiglottitis, peritonitis, appendicitis, Sheila cystitis, diverticulitis, hepatitis, colitis, UTI, PID, TOA, pyelonephritis, prostatitis, epididymitis, meningitis, encephalitis, pulmonary embolism, CVA, thyroid storm, pancreatitis, adrenal crisis, cavernous sinus thrombosis, this is not meant to be an all-inclusive list. EKG interpreted by me (3pts min.). @ -None done X-rays interpreted by me (1pt min.). @ -Chest x-ray shows findings concerning for possible pneumonia. CT interpreted by me (1pt min.). @ -None done U/S interpreted by me (1pt. min.). @ -None done What testing was considered but not performed or refused? (CT, X-rays, U/S, labs)? Why? @ -None What meds were considered but not given or refused? Why? @ -None Did you discuss the management of the patient with other professionals (professionals i.e. Dr., PA, RADIOLOGIC TECHNICIAN, lab, RT, psych nurse, social work lecturer, edge dyer, teacher, chief talent officer, employment case manager)? Give summary @ -No Was smoking cessation discussed for >3mins.? @ -No Was critical care preformed (if so, how long)? @ -No Were there social determinants of health that impacted care today? How? (Homelessness, low income, unemployed, alcoholism, drug addiction, transportation, low edu. Level, literacy, decrease access to med. care, long-term, rehab)? @ -No Was there de-escalation of care discussed even if they declined (Discuss DNR or withdrawal of care, Hospice)? DNR status @ -No What co-morbidities impacted this encounter? (DM, HTN, Smoking, COPD, CAD, Cancer, CVA, ARF, Chemo, Hep., AIDS, mental health diagnosis, sleep apnea, morbid obesity)? @ -None Was patient admitted / discharged? Hospital course, mention meds given and route, prescriptions, significant lab abnormalities, going to OR and other pertinent info. @ -Based on the patient's presentation and physical exam, presents to the emergency department for evaluation for possible UTI and fever. Sent from [facility]. Symptoms started today. Currently afebrile. Into the labs within acceptable limits. At her baseline which is A&O x 1. Will obtain infectious labs. Patient was in agreement this plan. She will receive a 1 L fluid bolus as well as a dose of Tylenol for fever. Laboratory studies are pending at this time. Patient signed out to [facility] emergency department physician Dr. Loera pending results of workup. Undiagnosed new problem with uncertain prognosis? @ -No Drug Therapy requiring intensive monitoring for toxicity (Heparin, Nitro, Insulin, Cardizem)? @ -No Were any procedures done? @ -No (Howard Woodson) Was patient admitted / discharged? Hospital course, mention meds given and route, prescriptions, significant lab abnormalities, going to OR and other pertinent info. @ -Patient signed out to me pending laboratory studies and chest xray. Urine does return and patient does have urinary tract infection. Chest xray demonstrates possible pneumonia. She was given a dose of Rocephin. Patient will be discharged back and switched to Levaquin to cover both pneumonia and uti. Patient does not have sepsis criteria. She can be monitored at [facility]. Recommended to return should symptoms not improve on antibiotics. Undiagnosed new problem with uncertain prognosis? @ -No Drug Therapy requiring intensive monitoring for toxicity (Heparin, Nitro, Insulin, Cardizem)? @ -No Were any procedures done? @ -No Diagnosis/symptom? @ -acute pyrexia, acute uti, acute pneumonia Acute, or Chronic, or Acute on Chronic? @ -acute Uncomplicated (without systemic symptoms) or Complicated (systemic symptoms)? @ -complicated Side effects of treatment? @ -No Exacerbation, Progression, or Severe Exacerbation? @ -No Poses a threat to life or bodily function? How? (Chest pain, [place], MT, pneumonia, PE, COPD, DKA, ARF, appy, cholecystitis, CVA, Diverticulitis, Homicidal, Suicidal, threat to staff... and all critical care pts) @ -No (Sharri Loera) - Lab Data Lab Results 03/11/24 03/11/24 03/11/24 Range/Units 20:42 20:42 20:42 WBC 7.1 (3.8-10.6) k/uL RBC 3.64 L (3.80-5.40) m/uL Hgb 11.5 (11.4-16.0) gm/dL Hct 35.4 (34.0-46.0) % MCV 97.2 (80.0-100.0) fL MCH 31.7 (25.0-35.0) pg MCHC 32.6 (31.0-37.0) g/dL RDW 12.3 (11.5-15.5) % Plt Count 172 (150-450) k/uL MPV 7.3 Neutrophils % 71 % Lymphocytes % 16 % Monocytes % 9 % Eosinophils % 0 % Basophils % 0 % Neutrophils # 5.0 (1.3-7.7) k/uL Lymphocytes # 1.1 (1.0-4.8) k/uL Monocytes # 0.6 (0-1.0) k/uL Eosinophils # 0.0 (0-0.7) k/uL Basophils # 0.0 (0-0.2) k/uL Sodium 137 (137-145) mmol/L Potassium 4.4 (3.5-5.1) mmol/L Chloride 107 (98-107) mmol/L Carbon Dioxide 21 L (22-30) mmol/L Anion Gap 9 mmol/L BUN 25 H (7-17) mg/dL Creatinine 0.93 (0.52-1.04) mg/dL Est GFR (CKD-EPI)AfAm 69 (>60 ml/min/1.73 sqM) Est GFR (CKD-EPI)NonAf 60 (>60 ml/min/1.73 sqM) Glucose 114 H (74-99) mg/dL Plasma Lactic Acid Tom 0.7 (0.7-2.0) mmol/L Calcium 8.8 (8.4-10.2) mg/dL Total Bilirubin 0.6 (0.2-1.3) mg/dL AST 40 H (14-36) U/L ALT 33 (4-34) U/L Alkaline Phosphatase 161 H (38-126) U/L Total Protein 6.2 L (6.3-8.2) g/dL Albumin 3.2 L (3.5-5.0) g/dL Urine Color Urine Appearance (Clear) Urine pH (5.0-8.0) Ur Specific [place] (1.001-1.035) Urine Protein (Negative) Urine Glucose (UA) (Negative) Urine Ketones (Negative) Urine Blood (Negative) Urine Nitrite (Negative) Urine Bilirubin (Negative) Urine Urobilinogen (<2.0) mg/dL Ur Leukocyte Esterase (Negative) Urine RBC (0-5) /hpf Urine WBC (0-5) /hpf Urine WBC Clumps (None) /hpf Ur Squamous Epith Cells (0-4) /hpf Urine Bacteria (None) /hpf Urine Mucus (None) /hpf Influenza Type A (PCR) (Not Detectd) Influenza Type B (PCR) (Not Detectd) RSV (PCR) (Not Detectd) SARS-CoV-2 (PCR) (Not Detectd) 03/11/24 03/11/24 Range/Units 20:42 21:04 WBC (3.8-10.6) k/uL RBC (3.80-5.40) m/uL Hgb (11.4-16.0) gm/dL Hct (34.0-46.0) % MCV (80.0-100.0) fL MCH (25.0-35.0) pg MCHC (31.0-37.0) g/dL RDW (11.5-15.5) % Plt Count (150-450) k/uL MPV Neutrophils % % Lymphocytes % % Monocytes % % Eosinophils % % Basophils % % Neutrophils # (1.3-7.7) k/uL Lymphocytes # (1.0-4.8) k/uL Monocytes # (0-1.0) k/uL Eosinophils # (0-0.7) k/uL Basophils # (0-0.2) k/uL Sodium (137-145) mmol/L Potassium (3.5-5.1) mmol/L Chloride (98-107) mmol/L Carbon Dioxide (22-30) mmol/L Anion Gap mmol/L BUN (7-17) mg/dL Creatinine (0.52-1.04) mg/dL Est GFR (CKD-EPI)AfAm (>60 ml/min/1.73 sqM) Est GFR (CKD-EPI)NonAf (>60 ml/min/1.73 sqM) Glucose (74-99) mg/dL Plasma Lactic Acid Tom (0.7-2.0) mmol/L Calcium (8.4-10.2) mg/dL Total Bilirubin (0.2-1.3) mg/dL AST (14-36) U/L ALT (4-34) U/L Alkaline Phosphatase (38-126) U/L Total Protein (6.3-8.2) g/dL Albumin (3.5-5.0) g/dL Urine Color Yellow Urine Appearance Cloudy H (Clear) Urine pH 5.5 (5.0-8.0) Ur Specific [place] 1.020 (1.001-1.035) Urine Protein 1+ H (Negative) Urine Glucose (UA) Negative (Negative) Urine Ketones Negative (Negative) Urine Blood Moderate H (Negative) Urine Nitrite Negative (Negative) Urine Bilirubin Negative (Negative) Urine Urobilinogen 3.0 (<2.0) mg/dL Ur Leukocyte Esterase Large H (Negative) Urine RBC 15 H (0-5) /hpf Urine WBC >182 H (0-5) /hpf Urine WBC Clumps Moderate H (None) /hpf Ur Squamous Epith Cells <1 (0-4) /hpf Urine Bacteria Many H (None) /hpf Urine Mucus Rare H (None) /hpf Influenza Type A (PCR) Not Detected (Not Detectd) Influenza Type B (PCR) Not Detected (Not Detectd) RSV (PCR) Not Detected (Not Detectd) SARS-CoV-2 (PCR) Not Detected (Not Detectd) Disposition <Howard Woodson - Last Filed: 03/11/24 20:59> Is patient prescribed a controlled substance at d/c from ED?: No Time of Disposition: 23:17 <Sharri Loera - Last Filed: 03/19/24 15:28> Clinical Impression: UTI (urinary tract infection), Fever Disposition: HOME SELF-CARE Condition: Stable Instructions (If sedation given, give patient instructions): Urinary Tract Infection in Women (DC) Additional Instructions: Take the antibiotic as prescribed. Follow-up with your doctor and return for any new or worsening symptoms Prescriptions: Levofloxacin [Levaquin] 750 mg PO DAILY 1 Days #5 tab Referrals: Zacarias Livingston MD [Primary Care Provider] - 1-2 days
[2024-03-11] MEDS: SODIUM CHLORIDE 0.9% 1,000 ML IV STA (20:45)
--- NOTE | 2024-03-11 20:45 | XR ---
EXAMINATION TYPE: XR chest 2V DATE OF EXAM: 03/11/2024 8:06 PM CLINICAL INDICATION:Female, 78 years old with history of fever; [facility] COMPARISON: 04/11/2023 TECHNIQUE: XR chest 2V Frontal and lateral views of the chest. FINDINGS: Lungs/Pleura: Airspace opacities are projecting over the spine on lateral view. No evidence for pleur al fusion or pneumothorax. Pulmonary vascularity: Unremarkable. Heart/mediastinum: Cardiomediastinal silhouette is unremarkable. Musculoskeletal: No acute osseous pathology. IMPRESSION: Airspace opacities projecting over the spine on lateral view. Correlate for developing pneumonia.
[2024-03-11] MEDS: ACETAMINOPHEN TAB 500 MG TAB PO STA (20:47)
[2024-03-11 21:23] LABS: Basophils % (A) 0 %; Eosinophils % (A) 0 %; HCT 35.4 % (34.0-46.0); HGB 11.5 gm/dL (11.4-16.0); Lymphocytes # (A) 1.1 k/uL (1.0-4.8); Lymphocytes % (A) 16 %; MCH 31.7 pg (25.0-35.0); MCHC 32.6 g/dL (31.0-37.0); MCV 97.2 fL (80.0-100.0); Mean Platelet Volume 7.3; Monocytes # (A) 0.6 k/uL (0-1.0); Monocytes % (A) 9 %; Neutrophils % (A) 71 %; Platelet Count 172 k/uL (150-450); RBC 3.64 m/uL (3.80-5.40); RDW 12.3 % (11.5-15.5); WBC 7.1 k/uL (3.8-10.6)
[2024-03-11 21:33] LABS: Appearance,Urine Cloudy (Clear); Bacteria,Urine Many /hpf; Bilirubin,Urine Negative (Negative); Blood,Urine Moderate (Negative); Color,Urine Yellow; Glucose,Urine (UA) Negative (Negative); Ketones,Urine Negative (Negative); Leukocyte Esterase,Urine Large (Negative); Mucus,Urine Rare /hpf; Nitrite,Urine Negative (Negative); PH, Urine 5.5 (5.0-8.0); Protein,Urine 1+ (Negative); RBC,Urine 15 /hpf (0-5); Squamous Epithelial Cell,Urine <1 /hpf (0-4); WBC,Urine >182 /hpf (0-5)
[2024-03-11 21:35] LABS: ALT 33 U/L (4-34); AST 40 U/L (14-36); African American GFR (CKD) 69 (>60 ml/min/1.73 sqM); Albumin 3.2 g/dL (3.5-5.0); Alkaline Phosphatase 161 U/L (38-126); Anion Gap 9 mmol/L; Blood Urea Nitrogen 25 mg/dL (7-17); Calcium 8.8 mg/dL (8.4-10.2); Carbon Dioxide 21 mmol/L (22-30); Chloride 107 mmol/L (98-107); Glucose 114 mg/dL (74-99); Non-African American GFR(CKD) 60 (>60 ml/min/1.73 sqM); Potassium 4.4 mmol/L (3.5-5.1); Sodium 137 mmol/L (137-145); Total Bilirubin 0.6 mg/dL (0.2-1.3); Total Protein 6.2 g/dL (6.3-8.2)
[2024-03-11 22:05] VITALS: TEMP 98.1
[2024-03-11] MEDS: cefTRIAXone IN SWFI 1,000 MG/10 ML SYRINGE IVP STA (22:35)
[2024-03-11 22:56] VITALS: BP 119/59; PULSE 68
== END 2024-03-12 00:10 | disposition home or self-care (01) ==
LOC: EC 18:55
DX: N39.0 Urinary tract infection, site not specified (principal); B96.20 Unspecified Escherichia coli [E. coli] as the cause of diseases classified elsewhere; Z88.1 Allergy status to other antibiotic agents; J18.9 Pneumonia, unspecified organism; Z88.8 Allergy status to other drugs, medicaments and biological substances
CPT/HCPCS: 99284; 96374; 96361 ×2; 36415; 80053; 83605; 85025; 81001; 87086; 87077; 87186; 87636; 71046; J0696

== ENCOUNTER 2025-05-23 15:02 | Emergency (ER) | payer MEDICARE, OTHER ==
[2025-05-23 15:10] VITALS: RESP 18
--- NOTE | 2025-05-23 15:52 | ED ---
General Adult HPI - General Chief complaint: Weakness Stated complaint: Shortness of breath Time Seen by Provider: 05/23/25 15:08 Source: EMS Mode of arrival: EMS Limitations: altered mental status - History of Present Illness Initial comments: This patient is a 79-year-old woman with advanced Alzheimer's dementia who is sent from correction to have evaluation for reportedly being weak and lethargic. The patient also reportedly having noisy respirations at the correction. The patient resides at [facility]. She is sent to have further evaluation. When I interviewed the patient, she is not able to give any history. The vital signs from the correction do not show any fever. The patient did have room air pulse oximetry of 93%. Blood pressure and heart rate normal at the correction. - Related Data Home Medications Medication Instructions Recorded Confirmed ARIPiprazole [Abilify] 1 mg PO DAILY 04/09/23 04/09/23 Aspirin EC [Ecotrin Low Dose] 81 mg PO DAILY 04/09/23 04/09/23 Atorvastatin [Lipitor] 20 mg PO HS 04/09/23 04/09/23 Donepezil [Aricept] 10 mg PO HS 04/09/23 04/09/23 Levocetirizine Dihydrochloride 5 mg PO HS 04/09/23 04/09/23 [Xyzal] Meloxicam [Mobic] 7.5 mg PO DAILY 04/09/23 04/09/23 Metoprolol Succinate (ER) [Toprol 50 mg PO DAILY 04/09/23 04/09/23 XL] Montelukast [Singulair] 10 mg PO HS 04/09/23 04/09/23 cycloSPORINE 0.05% OPHTH SOLN 1 drop BOTH EYES BID 04/09/23 04/09/23 [Restasis] predniSONE [Deltasone] 20 mg PO DAILY 04/09/23 04/09/23 Previous Rx's Medication Instructions Recorded Levofloxacin [Levaquin] 750 mg PO DAILY 1 Days #5 tab 03/11/24 Allergies Allergy/AdvReac Type Severity Reaction Status Date / Time clindamycin Allergy Unknown Verified 05/23/25 15:10 fluticasone Allergy Unknown Verified 05/23/25 15:10 [From Advair Diskus] pregabalin [From Lyrica] Allergy Unknown Verified 05/23/25 15:10 salmeterol Allergy Unknown Verified 05/23/25 15:10 [From Advair Diskus] Review of Systems ROS Statement: Those systems with pertinent positive or pertinent negative responses have been documented in the HPI. ROS Other: All systems not noted in ROS Statement are negative. Past Medical History Past Medical History: Hypertension Additional Past Medical History / Comment(s): Myasthenia gravis, myas thenia,alzheimer's, dementia History of Any Multi-Drug Resistant Organisms: None Reported Past Surgical History: Orthopedic Surgery Past Psychological History: Depression Smoking Status: Never smoker Past Alcohol Use History: None Reported Past Drug Use History: None Reported General Exam Limitations: altered mental status Course Vital Signs 05/23/25 05/23/25 15:07 16:31 Temperature 98.3 F Pulse Rate 60 64 Respiratory 18 18 Rate Blood Pressure 118/55 O2 Sat by Pulse 95 97 Oximetry EKG Findings - EKG Comments: EKG Findings:: There is moderate amount of artifact due to tremor that limits evaluation. - EKG Results: EKG: interpreted by ALANA, sinus rhythm, normal axis, normal QRS EKG shows: bradycardia (Rate 59 bpm) Medical Decision Making - Medical Decision Making The patient had chest x-ray that I interpreted as negative for acute infiltrate, pneumothorax, congestive heart failure. - Lab Data Result diagrams: 05/23/25 15:59 05/23/25 15:59 Lab Results 05/23/25 05/23/25 05/23/25 Range/Units 15:59 15:59 15:59 WBC 9.19 (4.50-10.00) 10*3/uL RBC 3.70 L (4.10-5.20) 10*6/uL Hgb 12.2 (12.0-15.0) g/dL Hct 35.7 L (37.2-46.3) % MCV 96.5 (80.0-97.0) fL MCH 33.0 H (27.0-32.0) pg MCHC 34.2 (32.0-37.0) g/dL Plt Count 248 (140-440) 10*3/uL MPV 9.8 (9.5-12.2) fL Immature Gran % (Auto) 0.3 % Neutrophils % 79.6 % Lymphocytes % 9.6 % Monocytes % 8.8 % Eosinophils % 1.3 % Basophils % 0.4 % Immature Gran # 0.03 (0.00-0.04) 10*3/uL Neutrophils # 7.31 (1.80-7.70) 10*3/uL Lymphocytes # 0.88 L (0.90-5.00) 10*3/uL Monocytes # 0.81 (0.20-1.00) 10*3/uL Eosinophils # 0.12 (0.04-0.35) 10*3/uL Basophils # 0.04 (0.00-0.10) 10*3/uL PT 10.5 (10.0-12.5) sec INR 0.9 (<1.2) APTT 24.0 (22.0-30.0) sec Sodium 139 (137-145) mmol/L Potassium 4.4 (3.5-5.1) mmol/L Chloride 106 (98-107) mmol/L Carbon Dioxide 22 (22-30) mmol/L Anion Gap 11 mmol/L BUN 14 (7-17) mg/dL Creatinine 0.61 (0.52-1.04) mg/dL Est GFR (CKD-EPI)AfAm >90 (>60 ml/min/1.73 sqM) Est GFR (CKD-EPI)NonAf 87 (>60 ml/min/1.73 sqM) Glucose 99 (74-99) mg/dL Plasma Lactic Acid Tom (0.7-2.0) mmol/L Calcium 9.5 (8.4-10.2) mg/dL Total Bilirubin 0.6 (0.2-1.3) mg/dL AST 23 (14-36) U/L ALT 11 (4-34) U/L Alkaline Phosphatase 126 (38-126) U/L Troponin I (0.000-0.034) ng/mL Total Protein 6.5 (6.3-8.2) g/dL Albumin 3.6 (3.5-5.0) g/dL 05/23/25 05/23/25 Range/Units 15:59 15:59 WBC (4.50-10.00) 10*3/uL RBC (4.10-5.20) 10*6/uL Hgb (12.0-15.0) g/dL Hct (37.2-46.3) % MCV (80.0-97.0) fL MCH (27.0-32.0) pg MCHC (32.0-37.0) g/dL Plt Count (140-440) 10*3/uL MPV (9.5-12.2) fL Immature Gran % (Auto) % Neutrophils % % Lymphocytes % % Monocytes % % Eosinophils % % Basophils % % Immature Gran # (0.00-0.04) 10*3/uL Neutrophils # (1.80-7.70) 10*3/uL Lymphocytes # (0.90-5.00) 10*3/uL Monocytes # (0.20-1.00) 10*3/uL Eosinophils # (0.04-0.35) 10*3/uL Basophils # (0.00-0.10) 10*3/uL PT (10.0-12.5) sec INR (<1.2) APTT (22.0-30.0) sec Sodium (137-145) mmol/L Potassium (3.5-5.1) mmol/L Chloride (98-107) mmol/L Carbon Dioxide (22-30) mmol/L Anion Gap mmol/L BUN (7-17) mg/dL Creatinine (0.52-1.04) mg/dL Est GFR (CKD-EPI)AfAm (>60 ml/min/1.73 sqM) Est GFR (CKD-EPI)NonAf (>60 ml/min/1.73 sqM) Glucose (74-99) mg/dL Plasma Lactic Acid Tom 1.2 (0.7-2.0) mmol/L Calcium (8.4-10.2) mg/dL Total Bilirubin (0.2-1.3) mg/dL AST (14-36) U/L ALT (4-34) U/L Alkaline Phosphatase (38-126) U/L Troponin I <0.012 (0.000-0.034) ng/mL Total Protein (6.3-8.2) g/dL Albumin (3.5-5.0) g/dL Disposition Clinical Impression: Dementia Disposition: HOME SELF-CARE Condition: Fair Instructions (If sedation given, give patient instructions): Dementia (ED) Is patient prescribed a controlled substance at d/c from ED?: No Referrals: Lance Burnett MD [Primary Care Provider] - 1-2 days
[2025-05-23 16:10] LABS: Basophils # (A) 0.04 10*3/uL (0.00-0.10); Basophils % (A) 0.4 %; Eosinophils # (A) 0.12 10*3/uL (0.04-0.35); Eosinophils % (A) 1.3 %; HCT 35.7 % (37.2-46.3); HGB 12.2 g/dL (12.0-15.0); Lymphocytes # (A) 0.88 10*3/uL (0.90-5.00); Lymphocytes % (A) 9.6 %; MCH 33.0 pg (27.0-32.0); MCHC 34.2 g/dL (32.0-37.0); MCV 96.5 fL (80.0-97.0); Monocytes # (A) 0.81 10*3/uL (0.20-1.00); Monocytes % (A) 8.8 %; Neutrophils # (A) 7.31 10*3/uL (1.80-7.70); Neutrophils % (A) 79.6 %; Platelet Count 248 10*3/uL (140-440); RBC 3.70 10*6/uL (4.10-5.20); RDW 11.8 % (11.5-14.5); WBC 9.19 10*3/uL (4.50-10.00)
[2025-05-23 16:22] LABS: INR 0.9 (<1.2); Partial Thromboplastin Time 24.0 sec (22.0-30.0); Prothrombin Time 10.5 sec (10.0-12.5)
--- NOTE | 2025-05-23 16:24 | XR ---
EXAMINATION TYPE: XR chest 2V DATE OF EXAM: 05/23/2025 4:13 PM COMPARISON: Chest radiographs from 03/11/2024 CLINICAL INDICATION: Female, 79 years old with history of Weakness; [facility] TECHNIQUE: XR chest 2V Frontal and lateral views of the chest. FINDINGS: Lungs/Pleura: There is no evidence of pleural effusion, focal consolidation, or pneumothorax. Pulmonary vascularity: Unremarkable. Heart/mediastinum: Cardiomediastinal silhouette is enlarged. Musculoskeletal: No acute osseous pathology. IMPRESSION: No acute cardiopulmonary disease/process. [facility] Jeniffer Alexander, , 05/23/2025 4:22 PM
[2025-05-23 16:27] LABS: ALT 11 U/L (4-34); African American GFR (CKD) >90 (>60 ml/min/1.73 sqM); Albumin 3.6 g/dL (3.5-5.0); Anion Gap 11 mmol/L; Blood Urea Nitrogen 14 mg/dL (7-17); Calcium 9.5 mg/dL (8.4-10.2); Carbon Dioxide 22 mmol/L (22-30); Chloride 106 mmol/L (98-107); Glucose 99 mg/dL (74-99); Non-African American GFR(CKD) 87 (>60 ml/min/1.73 sqM); Sodium 139 mmol/L (137-145); Total Protein 6.5 g/dL (6.3-8.2)
[2025-05-23 16:45] LABS: AST 23 U/L (14-36); Alkaline Phosphatase 126 U/L (38-126); Potassium 4.4 mmol/L (3.5-5.1)
[2025-05-23 18:29] VITALS: BP 122/74; PULSE 68; TEMP 98.1
== END 2025-05-23 19:25 | disposition home or self-care (01) ==
LOC: EC 15:02
DX: R53.1 Weakness (principal); F03.90 Unspecified dementia, unspecified severity, without behavioral disturbance, psychotic disturbance, mood disturbance, and anxiety; Z88.1 Allergy status to other antibiotic agents; Z88.8 Allergy status to other drugs, medicaments and biological substances
CPT/HCPCS: 36415; 71046; 80053; 83605; 84484; 85025; 85610; 85730; 93005; 99285